=== PATIENT | female | born 1940 | race Two or more races ===

== ENCOUNTER 2019-09-24 15:29 | Emergency (ER) | payer OTHER ==
[2019-09-24 16:08] VITALS: TEMP 98.1; BMI 32.9
--- NOTE | 2019-09-24 16:59 | PDOC ---
History of Present Illness - General Chief Complaint: Pain Stated Complaint: PAIN History Source: Patient, Family Exam Limitations: No Limitations - History of Present Illness Initial Comments: 09/24/19 16:44 Patient is a 79 year old female with h/o DM II, HTN, HLD, Hypothyroid, Breast CA , mastectomy right, goitor, total thyroidectomy, JACK here with c/o facial pain, swelling x 3 days. Was seen by Urgent care yesterday was put on antibx Augmentin but still has symptoms. Patient states the pain is 10/10, continuos, stabbing pain which get worse with swallowing. She has not eaten today. Denies fever, chills, nausea, vomiting. She took Tylenol at 2 PM today for pain with mild relief of symptoms. PMD: Dr. Becky Corbin PMHX: as above PSOCHX: neg cig, etoh, drug ALL: NKDA GENERAL/CONSTITUTIONAL: [No fever or chills. No weakness. No weight change.] HEAD, EYES, EARS, NOSE AND THROAT: [No change in vision. No ear pain or discharge. No sore throat.] CARDIOVASCULAR: [No chest pain or shortness of breath.] RESPIRATORY: [No cough, wheezing, or hemoptysis.] GASTROINTESTINAL: [No nausea, vomiting, diarrhea or constipation. No rectal bleeding.] GENITOURINARY: [No dysuria, frequency, or change in urination.] MUSCULOSKELETAL: [(+) joint or muscle swelling or pain. No neck or back pain.] SKIN AND BREASTS: [No rash or easy bruising.] NEUROLOGIC: [No headache, vertigo, loss of consciousness, or loss of sensation.] PSYCHIATRIC: [No depression or anxiety.] ENDOCRINE: [No increased thirst. No abnormal weight change.] HEMATOLOGIC/LYMPHATIC: [No anemia, easy bleeding, or history of blood clots.] ALLERGIC/IMMUNOLOGIC: [No hives or skin allergy. No latex allergy.] GENERAL: [The patient is awake, alert, and fully oriented, in no acute distress. ] HEAD: [Normal with no signs of trauma.] EYES: [Pupils equal, round and reactive to light, extraocular movements intact, sclera anicteric, conjunctiva clear.] ENT: [Ears normal, nares patent, oropharynx clear without exudates. Moist mucous membranes, (+) tenderness to the bilateral angle of the jaw and preand posterior auricular area.] NECK: [Normal range of motion, supple without lymphadenopathy, JVD, or masses.] LUNGS: [Breath sounds equal, clear to auscultation bilaterally. No wheezes, and no crackles.] HEART: [Regular rate and rhythm, normal S1 and S2 without murmur, rub.] ABDOMEN: [Soft, nontender, normoactive bowel sounds. No guarding, no rebound. No masses.] EXTREMITIES: [Normal range of motion, no edema. No clubbing or cyanosis. No cords, erythema, or tenderness.] NEUROLOGICAL: [Cranial nerves II through XII grossly intact. Normal speech, normal gait.] PSYCH: [Normal mood, normal affect.] SKIN: [Warm, Dry, normal turgor, no rashes or lesions noted.] Past History - Past Medical History Allergies/Adverse Reactions: Allergies Allergy/AdvReac Type Severity Reaction Status Date / Time No Known Allergies Allergy Verified 09/24/19 16:08 Home Medications: Ambulatory Orders Pseudoephedrine HCl [Sudafed] 30 mg PO QID #20 tablet 09/24/19 COPD: No Diabetes: Yes HTN: Yes Hypercholesterolemia: Yes - Psycho Social/Smoking Cessation Hx Smoking History: Never smoked *Physical Exam - Vital Signs Last Vital Signs Temp Pulse Resp BP Pulse Ox 98.1 F 64 19 145/50 L 98 09/24/19 16:02 09/24/19 16:02 09/24/19 16:02 09/24/19 16:02 09/24/19 16:02 ED Treatment Course - LABORATORY CBC & Chemistry Diagram: 09/24/19 17:39 09/24/19 17:39 Medical Decision Making - Medical Decision Making 09/24/19 16:44 Patient is a 79 year old female with h/o DM II, HTN, HLD, Hypothyroid, Breast CA , mastectomy right, goitor, total thyroidectomy, JACK here with c/o facial pain, swelling x 3 days. Was seen by Urgent care yesterday was put on antibx Augmentin but still has symptoms. Patient states the pain is 10/10, continuos, stabbing pain which get worse with swallowing. She has not eaten today. Denies fever, chills, nausea, vomiting. She took Tylenol at 2 PM today for pain with mild relief of symptoms. DDX. salivary stones, otitis media IV labs ct facial pain meds Patient refused Motrin will wait and then give patient some Tylenol since she took Tylenol at home. Labs reviewed no acute findings 09/24/19 21:04 Patient Full Name: SARAH NICHOLAS Patient Accession No: [id number] Patient : [id number] Reason for Exam: pre and post auricular pain, r/o mastoiditis,salivary gland stones Referring Physician: Patient Name: CRISTOPHER SMITH THIS IS A PRELIMINARY REPORT FROM [facility] [employer] [facility] DATE OF SERVICE: 2019-09-24 19:49:20 IMAGES: [id number] EXAM: CT face without contrast HISTORY:pre-and post clavicular pain. Rule out mastoiditis or salivary gland stones. COMPARISON: None. FINDINGS: Mastoid air cells and middle ear cavities are essentially clear. There is trace fluid in the inferior margin of the left mastoid air cells. Mild mucosal thickening in bilateral ethmoid sinuses and maxillary sinuses. Bilateral joe bullosa. Ostiomeatal complexes are patent bilaterally. Parotid glands and submandibular glands are grossly unremarkable without calculi. One or more of the following dose reduction techniques were used: automated exposure control, adjustment of the mA and/or kV according to patient size, use of iterative reconstructive technique. THIS DOCUMENT HAS BEEN ELECTRONICALLY SIGNED Luis A Gu MD 09/24/2019 20:51 EST M.D. Please call [facility] [phone] ([phone]) with questions. INTERPRETING RADIOLOGIST: Luis A Gu MD Electronically Signed: Sep 24, 2019 08:52PM EST Results of the CAT scan and a copy of the CAT scan was given to the patient and daughter. Discussed that them may need an ENT referral if symptoms are not resolving. 09/24/19 21:16 I discussed the physical exam findings, ancillary test results and final diagnoses with the patient. I answered all of the patient's questions. The patient was satisfied with the care received and felt comfortable with the discharge plan and treatment plan. The Patient agrees to follow up with the primary care physician within 24-72 hours. Discharge - Discharge Information Problems reviewed: Yes Clinical Impression/Diagnosis: Sinusitis Qualifiers: Sinusitis location: unspecified location Chronicity: unspecified Qualified Code (s): J32.9 - Chronic sinusitis, unspecified Condition: Stable Disposition: HOME - Additional Discharge Information Prescriptions: Pseudoephedrine HCl [Sudafed] 30 mg PO QID #20 tablet - Follow up/Referral Referrals: Becky Corbin MD [Primary Care Provider] - - Patient Discharge Instructions Patient Printed Discharge Instructions: Sinusitis Additional Instructions: Your Discharge Instructions: You must call primary care physician within 24 hours to arrange follow-up. Return to the Emergency Department with any new, persistent or worsening symptoms, for fever, chills, SOB, dizziness or any other concerning changes that may occur. Continue your Augmentin as prescribed. Follow-up with your ENT doctor if symptoms are not improving. - Post Discharge Activity
[2019-09-24] MEDS ORDERED: IBUPROFEN 600 MG TABLET (FP) PO ONE ×2 (17:02→17:09)
[2019-09-24 17:52] LABS: BASO % 0.6 % (0-2.0); HEMATOCRIT 37.6 % (32.4-45.2); HEMOGLOBIN 12.5 GM/dL (10.7-15.3); LYMPH % 17.3 % (8-40); MCH 30.2 pg (25.7-33.7); MCHC 33.1 g/dl (32.0-36.0); MEAN CELL VOLUME 91.1 fl (80-96); MONO % 11.7 % (3.8-10.2); NEUT % 69.4 % (42.8-82.8); PLATELET COUNT 283 K/MM3 (134-434); RBC 4.13 M/mm3 (3.60-5.2); RDW 12.7 % (11.6-15.6); WHITE BLOOD COUNT 11.3 K/mm3 (4.0-10.0)
[2019-09-24 18:44] LABS: BLOOD UREA NITROGEN 26.7 mg/dL (7-18); CALCIUM 9.9 mg/dL (8.5-10.1); CREATININE 1.1 mg/dL (0.55-1.3); POTASSIUM 4.1 mmol/L (3.5-5.1)
[2019-09-24] MEDS ORDERED: ACETAMINOPHEN 500 MG TABLET (FP) PO ONE (19:51)
[2019-09-24] MEDS ORDERED: ACETAMINOPHEN 325 MG TABLET (FP) ONE (20:21)
[2019-09-24 21:31] VITALS: BP 135/54; PULSE 72
== END 2019-09-24 21:32 | disposition home or self-care (01) ==
LOC: JER 15:29
DX: J32.9 Chronic sinusitis, unspecified (principal); I10 Essential (primary) hypertension; E11.9 Type 2 diabetes mellitus without complications; Z79.84 Long term (current) use of oral hypoglycemic drugs; E78.5 Hyperlipidemia, unspecified; E89.0 Postprocedural hypothyroidism; Z85.3 Personal history of malignant neoplasm of breast; Z90.11 Acquired absence of right breast and nipple; Z90.710 Acquired absence of both cervix and uterus; Z90.79 Acquired absence of other genital organ(s); Z90.722 Acquired absence of ovaries, bilateral
CPT/HCPCS: 36415; 70486-TC; 80048; 85025; 99283-25